=== PATIENT | male | born 1955 | race Caucasian/White ===

== ENCOUNTER 2018-07-31 07:23 | Emergency (ER) | payer MEDICARE, MEDICAID ==
--- NOTE | 2018-07-31 07:36 | EDM.PDOC ---
ED HPI GENERAL MEDICAL PROBLEM - General Chief Complaint: Upper Extremity Injury/Pain Stated Complaint: CRAMP IN NECK, ROCÍO SIDE Time Seen by Provider: 07/31/18 07:35 Source of Information: Reports: Patient, Old Records, RN, RN Notes Reviewed History Limitations: Reports: No Limitations - History of Present Illness INITIAL COMMENTS - FREE TEXT/NARRATIVE: Pt presents from home by POV with c/o gradual onset of right sided neck pain with muscle spasms and pain that radiates to the Rt shoulder and deltoid shoulder region. He denies any injury. Denies fever, chills, headache, numbness , or tingling. Onset: Gradual Onset Date: 07/30/18 Duration: Constant, Getting Worse Location: Reports: Neck, Upper Extremity, Right Quality: Reports: Ache (muscle spasm) Severity: Severe Improves with: Reports: None Worsens with: Reports: Movement Associated Symptoms: Reports: No Other Symptoms Treatments ESTIMATOR AND DRAFTER: Reports: Aspirin, Home Treatments (Icy-Hot topical) Right Neck Pain Score (Numeric/FACES): 10 - Related Data Allergies Allergy/AdvReac Type Severity Reaction Status Date / Time No Known Allergies Allergy Verified 07/31/18 07:34 Home Meds: Home Meds Aspirin [[place] Aspirin] 81 mg PO DAILY 07/31/18 [History] Lisinopril/Hydrochlorothiazide [Lisinopril-Hctz 20-12.5 mg Tab] 1 tab PO DAILY 07/31/18 [History] Metoprolol Succinate 50 mg PO DAILY 07/31/18 [History] Omeprazole 20 mg PO DAILY 07/31/18 [History] atorvaSTATin Calcium [Atorvastatin Calcium] 40 mg PO DAILY 07/31/18 [History] Past Medical History Cardiovascular History: Reports: High Cholesterol, Hypertension Gastrointestinal History: Reports: GERD Genitourinary History: Reports: Chronic Renal Insuffiency (CKD Stage 3) Neurological History: Reports: Brain Injury - Past Surgical History Head Surgeries/Procedures: Reports: Craniotomy Musculoskeletal Surgical History: Reports: ORIF (finger) Social & Family History - Family History Family Medical History: Noncontributory - Tobacco Use Smoking Status *Q: Never Smoker - Living Situation & Occupation Occupation: Retired Review of Systems - Review of Systems Review Of Systems: ROS reveals no pertinent complaints other than HPI. ED EXAM, GENERAL - Physical Exam Exam: See Below Exam Limited By: No Limitations General Appearance: Alert, WD/WN, No Apparent Distress Eye Exam: Bilateral Eye: EOMI, Normal Inspection, PERRL Ears: Normal External Exam, Hearing Grossly Normal Nose: Normal Inspection, Normal Mucosa, No Blood Throat/Mouth: Normal Inspection, Normal Lips, Normal Voice, No Airway Compromise Head: Atraumatic, Normocephalic Neck: Supple, Limited Range of Motion (limited B/L rotation due to muscle spasm and pain. No nuchal rigidity.), Tender Lateral (Rt > Left). No: Carotid Bruit, Lymphadenopathy (L), Lymphadenopathy (R), Tender Midline Respiratory/Chest: No Respiratory Distress, Lungs Clear, Normal Breath Sounds, No Accessory Muscle Use, Chest Non-Tender Cardiovascular: Regular Rate, Rhythm Peripheral Pulses: 3+: Radial (L), Radial (R) Back Exam: Full Range of Motion, Muscle Spasm (Rt paraspinal neck and upper thoracic, and at Rt trapezius region), Paraspinal Tenderness. No: CVA Tenderness (L), CVA Tenderness (R), Vertebral Tenderness Extremities: Normal Inspection, Normal Range of Motion, Non-Tender, Normal Capillary Refill, No Pedal Edema Neurological: Alert, Oriented, CN II-XII Intact, Normal Cognition, Normal Gait, No Motor/Sensory Deficits Psychiatric: Normal Mood Skin Exam: Warm, Dry, Intact, Normal Color, No Rash Course - Vital Signs Last Recorded V/S: Last Vital Signs Temp 36.4 C 07/31/18 07:25 Pulse 63 07/31/18 07:25 Resp 18 07/31/18 07:25 BP 127/75 07/31/18 07:25 Pulse Ox 98 07/31/18 07:25 - Orders/Labs/Meds Orders: Active Orders 24 hr Category Date Time Status Cervical Spine 2V or 3V [CR] Urgent Exams 07/31/18 07:42 Ordered - Radiology Interpretation Free Text/Narrative:: XR C-spine: severe DDD and chronic appearing degenerative or post-traumatic changes, no acute fractures; see Rad. report. Departure - Departure Time of Disposition: 08:02 Disposition: Home, Self-Care 01 Condition: Good Clinical Impression: Cervical radiculopathy due to degenerative joint disease of spine, Trapezius muscle spasm Cervical spine degeneration Qualifiers: Spinal osteoarthritis complication: with radiculopathy Qualified Code(s): M47.22 - Other spondylosis with radiculopathy, cervical region - Discharge Information *PRESCRIPTION DRUG MONITORING PROGRAM REVIEWED*: No *COPY OF PRESCRIPTION DRUG MONITORING REPORT IN PATIENT YISSEL: No Instructions: Cervical Radiculopathy, [id number], Degenerative Disk Disease, Acute Torticollis, Adult Forms: ED Department Discharge Additional Instructions: Rx: Dexamethasone 4mg Rx: Cyclobenzaprine 10mg *Do not drive while under the influence of this medication. Follow up in clinic in 3 to 4 days for recheck. - My Orders Last 24 Hours: My Active Orders 07/31/18 07:42 Cervical Spine 2V or 3V [CR] Urgent - Assessment/Plan Last 24 Hours: My Active Orders 07/31/18 07:42 Cervical Spine 2V or 3V [CR] Urgent
--- NOTE | 2018-07-31 08:37 | CR ---
Clinical history: 63-year-old male complaining of neck pain that "radiates to right shoulder". No kno wn injury. Interpretation: Abnormal. Evidence of old trauma and chronic reactive arthritic changes. Dense reactive arthritic changes involving the atlantoaxial joint and several facet joints mid cervic al spine, particularly on the right. 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 *Chronic reactive arthritic changes including large uncinate spur formation (R>L) several levels but particularly C3-4 and C5-6 levels, on the right, probably responsible for patient's radiculopathy. No sign of pathologic skeletal lesion, prevertebral soft tissue swelling, cervical fracture or spondy lolisthesis. No cervical rib anomalies. Lung apices clear. Note: Evidence of previous neurosurgery (bone flap) and old healed fracture left clavicle.
== END 2018-07-31 08:28 | disposition home or self-care (01) ==
LOC: DL.ED 07:23
DX: M50.10 Cervical disc disorder with radiculopathy, unspecified cervical region (principal); M47.22 Other spondylosis with radiculopathy, cervical region; M62.830 Muscle spasm of back; I12.9 Hypertensive chronic kidney disease with stage 1 through stage 4 chronic kidney disease, or unspecified chronic kidney disease; N18.3 Chronic kidney disease, stage 3 (moderate)
CPT/HCPCS: 72040; 99283

== ENCOUNTER 2018-12-05 10:51 | Observation (INO) | payer MEDICARE, MEDICAID ==
[2018-12-05] MEDS ORDERED: Ondansetron 4 MG/2 ML SDV IV ONE (11:06)
[2018-12-05] MEDS ORDERED: Sodium Chloride 0.9% 1,000 ML IV ONE (11:06)
[2018-12-05] MEDS: Sodium Chloride 0.9% 10 ML Syringe FLUSH PRN ×2 (11:22→16:08)
[2018-12-05 11:49] LABS: ANION GAP 19.8
[2018-12-05] MEDS ORDERED: Albuterol/Ipratropium 3.0-0.5 MG/3 ML Neb Soln NEB ONE (11:57)
--- NOTE | 2018-12-05 12:42 | EDM.PDOCBH ---
Scribed by Leilani Tadeo 12/05/18 1216 for Josie Sim MD ED HPI GENERAL MEDICAL PROBLEM - General Chief Complaint: Drug or Alcohol Abuse Stated Complaint: AMBULANCE Time Seen by Provider: 12/05/18 10:44 Source of Information: Reports: Patient, EMS, EMS Notes Reviewed, RN, RN Notes Reviewed History Limitations: Reports: Intoxication - History of Present Illness INITIAL COMMENTS - FREE TEXT/NARRATIVE: Patient presents to ER by [facility]. Patient was found in the elevator in his apartment. patient states that he had been out drinking and smoking and was on his way home. He thinks he was to drunk and passed out in the elevator. He was found by another apartment resident who called 911. He denies any pain or injury. Patient is intoxicated and not able to provide any further history. Severity: Moderate Left Chest Pain Score (Numeric/FACES): 0 - Related Data Allergies Allergy/AdvReac Type Severity Reaction Status Date / Time No Known Allergies Allergy Verified 12/05/18 10:53 Home Meds: Home Meds Aspirin [[place] Aspirin] 81 mg PO DAILY 07/31/18 [History] Lisinopril/Hydrochlorothiazide [Lisinopril-Hctz 20-12.5 mg Tab] 1 tab PO DAILY 07/31/18 [History] Metoprolol Succinate 50 mg PO DAILY 07/31/18 [History] Omeprazole 20 mg PO DAILY 07/31/18 [History] atorvaSTATin Calcium [Atorvastatin Calcium] 40 mg PO DAILY 07/31/18 [History] Past Medical History Cardiovascular History: Reports: High Cholesterol, Hypertension Gastrointestinal History: Reports: GERD Genitourinary History: Reports: Chronic Renal Insuffiency (CKD Stage 3) Neurological History: Reports: Brain Injury - Past Surgical History Head Surgeries/Procedures: Reports: Craniotomy Musculoskeletal Surgical History: Reports: ORIF (finger) Social & Family History - Family History Family Medical History: Noncontributory - Tobacco Use Smoking Status *Q: Current Every Day Smoker Tobacco Use Within Last Twelve Months: Cigarettes Years of Tobacco use: 48 - Alcohol Use Alcohol Use History: Yes Alcohol Use Frequency: Daily, Patient Refused to Answer - Living Situation & Occupation Living situation: Reports: Alone Occupation: Retired ED ROS GENERAL - Review of Systems Review Of Systems: ROS reveals no pertinent complaints other than HPI. ED EXAM, BEHAVIORAL HEALTH - Physical Exam Exam: See Below Exam Limited By: Intoxication General Appearance: Alert, No Apparent Distress, Obese Eye Exam: Bilateral Eye: EOMI, Normal Inspection, PERRL Ears: Normal External Exam, Hearing Grossly Normal Nose: Normal Inspection, Normal Mucosa, No Blood Throat/Mouth: Normal Lips, Normal Oropharynx, Normal Voice, No Airway Compromise , Other (very dry) Head: Atraumatic, Normocephalic, Other (dry vomit on chin.) Neck: Normal Inspection, Full Range of Motion Respiratory/Chest: No Respiratory Distress, Lungs Clear, No Accessory Muscle Use , Chest Non-Tender, Wheezing (intermittent), Other (Cough, non-productive) Cardiovascular: Regular Rate, Rhythm, No Edema GI/Abdominal: Normal Bowel Sounds, Soft, Non-Tender, No Distention (Male) Exam: Deferred Rectal (Males) Exam: Deferred Back Exam: Normal Inspection Extremities: Normal Inspection, Normal Range of Motion, Non-Tender, Normal Capillary Refill, No Pedal Edema Neurological: Alert, No Motor/Sensory Deficits, Disoriented to Time, Other ( intoxicated) Skin Exam: Warm, Dry, Intact EKG INTERPRETATION EKG Date: 12/05/18 Time: 11:31 Rhythm: Other (sinus rhythm) Rate (Beats/Min): 87 [place]: Normal P-Wave: Present QRS: Normal ST-T: Normal QT: Normal Comparison: NA - No Prior EKG COURSE, BEHAVIORAL HEALTH COMP - Course Vital Signs: Last Vital Signs Temp 36.2 C 12/05/18 10:45 Pulse 101 H 12/05/18 12:22 Resp 18 12/05/18 12:22 BP 152/70 H 12/05/18 12:22 Pulse Ox 93 L 12/05/18 12:22 Orders, Labs, Meds: Active Orders 24 hr Category Date Time Status EKG 12 Lead [EKG Documentation Completion] [RC] STAT Care 12/05/18 11:05 Active Peripheral IV Care [RC] . DIRECTED Care 12/05/18 11:07 Active RT Aerosol Therapy [RC] ASDIRECTED Care 12/05/18 11:57 Active Chest 1V Frontal [CR] Stat Exams 12/05/18 11:05 Taken Sodium Chloride 0.9% [Saline Flush] Med 12/05/18 11:06 Active 10 ml FLUSH ASDIRECTED PRN Peripheral IV Insertion Adult [OM.PC] Stat Oth 12/05/18 11:05 Ordered Medication Orders Sodium Chloride (Saline Flush) 10 ml FLUSH ASDIRECTED PRN PRN Reason: Keep Vein Open Last Admin: 12/05/18 11:22 Dose: 10 ml Laboratory Tests 12/05/18 12/05/18 12/05/18 Range/Units 11:21 11:21 11:50 WBC 14.3 H (5.0-10.0) 10^3/uL RBC 5.80 (4.6-6.2) 10^6/uL Hgb 16.1 (14.0-18.0) g/dL Hct 48.2 (40.0-54.0) % MCV 83.1 (80-100) fL MCH 27.8 (27.0-34.0) pg MCHC 33.4 (33.0-35.0) g/dL Plt Count 246 (150-450) 10^3/uL Neut % (Auto) 79.3 H (42.2-75.2) % Lymph % (Auto) 14.7 L (20.5-50.1) % [place] % (Auto) 5.9 (2-8) % Eos % (Auto) 0.0 L (1.0-3.0) % Baso % (Auto) 0.1 (0.0-1.0) % Sodium 135 (135-145) mmol/L Potassium 3.8 (3.6-5.0) mmol/L Chloride 98 L (101-111) mmol/L Carbon Dioxide 21.0 (21.0-31.0) mmol/L Anion Gap 19.8 BUN 17 (7-18) mg/dL Creatinine 1.4 H (0.6-1.3) mg/dL Est Cr Clr Drug Dosing 59.45 mL/min Estimated GFR (MDRD) 51 BUN/Creatinine Ratio 12.14 Glucose 137 H (74-105) mg/dL Calcium 8.6 (8.4-10.2) mg/dl Total Bilirubin 0.6 (0.2-1.0) mg/dL AST 38 (10-42) IU/L ALT 28 (10-60) IU/L Alkaline Phosphatase 82 (42-121) IU/L Troponin I 0.02 (0.00-0.02) ng/ml Total Protein 7.8 (6.7-8.2) g/dl Albumin 4.1 (3.2-5.5) g/dl Globulin 3.7 Albumin/Globulin Ratio 1.11 Amylase 181 H (28-100) U/L Lipase 33 (22-51) U/L Urine Color Yellow (YELLOW) Urine Appearance Clear (CLEAR) Urine pH 5.0 (5.0-9.0) Ur Specific [place] >= 1.030 (1.005-1.030) Urine Protein 100 H (NEGATIVE) Urine Glucose (UA) 100 H (NEGATIVE) Urine Ketones Negative (NEGATIVE) Urine Occult Blood Large H (NEGATIVE) Urine Nitrite Negative (NEGATIVE) Urine Bilirubin Negative (NEGATIVE) Urine Urobilinogen 0.2 (0.2-1.0) mg/dL Ur Leukocyte Esterase Negative (NEGATIVE) Urine RBC 0-5 /HPF Urine WBC 0-5 (0-5/HPF) /HPF Ur Epithelial Cells Few /HPF Urine Bacteria Few (0-FEW/HPF) /HPF Hyaline Casts Few H /LPF Fine Granular Casts Few H (0/LPF) /LPF Urine Mucus Moderate H /LPF Urine Opiates Screen (NEGATIVE) Ur Oxycodone Screen (NEGATIVE) Urine Methadone Screen (NEGATIVE) Ur Barbiturates Screen (NEGATIVE) U Tricyclic Antidepress (NEGATIVE) Ur Phencyclidine Scrn (NEGATIVE) Ur Amphetamine Screen (NEGATIVE) U Methamphetamines Scrn (NEGATIVE) Urine MDMA Screen (NEGATIVE) U Benzodiazepines Scrn (NEGATIVE) Urine Cocaine Screen (NEGATIVE) U Marijuana (THC) Screen (NEGATIVE) Ethyl Alcohol 361 mg/dL 12/05/18 Range/Units 11:50 WBC (5.0-10.0) 10^3/uL RBC (4.6-6.2) 10^6/uL Hgb (14.0-18.0) g/dL Hct (40.0-54.0) % MCV (80-100) fL MCH (27.0-34.0) pg MCHC (33.0-35.0) g/dL Plt Count (150-450) 10^3/uL Neut % (Auto) (42.2-75.2) % Lymph % (Auto) (20.5-50.1) % Gilchrist % (Auto) (2-8) % Eos % (Auto) (1.0-3.0) % Baso % (Auto) (0.0-1.0) % Sodium (135-145) mmol/L Potassium (3.6-5.0) mmol/L Chloride (101-111) mmol/L Carbon Dioxide (21.0-31.0) mmol/L Anion Gap BUN (7-18) mg/dL Creatinine (0.6-1.3) mg/dL Est Cr Clr Drug Dosing mL/min Estimated GFR (MDRD) BUN/Creatinine Ratio Glucose (74-105) mg/dL Calcium (8.4-10.2) mg/dl Total Bilirubin (0.2-1.0) mg/dL AST (10-42) IU/L ALT (10-60) IU/L Alkaline Phosphatase (42-121) IU/L Troponin I (0.00-0.02) ng/ml Total Protein (6.7-8.2) g/dl Albumin (3.2-5.5) g/dl Globulin Albumin/Globulin Ratio Amylase (28-100) U/L Lipase (22-51) U/L Urine Color (YELLOW) Urine Appearance (CLEAR) Urine pH (5.0-9.0) Ur Specific [place] (1.005-1.030) Urine Protein (NEGATIVE) Urine Glucose (UA) (NEGATIVE) Urine Ketones (NEGATIVE) Urine Occult Blood (NEGATIVE) Urine Nitrite (NEGATIVE) Urine Bilirubin (NEGATIVE) Urine Urobilinogen (0.2-1.0) mg/dL Ur Leukocyte Esterase (NEGATIVE) Urine RBC /HPF Urine WBC (0-5/HPF) /HPF Ur Epithelial Cells /HPF Urine Bacteria (0-FEW/HPF) /HPF Hyaline Casts /LPF Fine Granular Casts (0/LPF) /LPF Urine Mucus /LPF Urine Opiates Screen Negative (NEGATIVE) Ur Oxycodone Screen Negative (NEGATIVE) Urine Methadone Screen Negative (NEGATIVE) Ur Barbiturates Screen Negative (NEGATIVE) U Tricyclic Antidepress Negative (NEGATIVE) Ur Phencyclidine Scrn Negative (NEGATIVE) Ur Amphetamine Screen Negative (NEGATIVE) U Methamphetamines Scrn Negative (NEGATIVE) Urine MDMA Screen Negative (NEGATIVE) U Benzodiazepines Scrn Negative (NEGATIVE) Urine Cocaine Screen Negative (NEGATIVE) U Marijuana (THC) Screen Negative (NEGATIVE) Ethyl Alcohol mg/dL Medications Generic Name Dose Route Start Last Admin Trade Name Freq PRN Reason Stop Dose Admin Sodium Chloride 10 ml 12/05/18 11:06 12/05/18 11:22 Saline Flush FLUSH 10 ml ASDIRECTED PRN Administration Keep Vein Open Discontinued Medications Generic Name Dose Route Start Last Admin Trade Name Nachoq PRN Reason Stop Dose Admin Albuterol/Ipratropium 3 ml 12/05/18 11:57 12/05/18 12:10 Duoneb 3.0-0.5 Mg/3 Ml NEB 12/05/18 11:58 3 ml ONETIME ONE Administration Sodium Chloride 1,000 mls @ 999 mls/hr 12/05/18 11:06 12/05/18 11:22 Normal Saline IV 12/05/18 12:06 999 mls/hr .BOLUS ONE Administration Ondansetron HCl 4 mg 12/05/18 11:06 12/05/18 11:23 Zofran IV 12/05/18 11:07 4 mg ONETIME ONE Administration Re-Assessment/Re-Exam: [facility] Final Radiology Report Call: [phone] assistance Online chat: [email or web address] Name: RIKA BEYER Age: 63Years M Date: 12/05/2018 SSN: -- : 1955 Study: XR CHEST 1 VIEW Requesting Physician: JOSIE SIM Images: 1 Addl Studies: Provided Clinical History: Contrast: Contrast Medium: Contrast Amount: Contrast Method: CONFIDENTIALITY STATEMENT This report is intended only for use by the referring physician, and only in accordance with law. If you received this in error, call [phone]. Page 1 of 1 EXAM: XR Chest, 1 View EXAM DATE/TIME: 12/05/2018 11:20 AM CLINICAL HISTORY: 63 years old, male; Signs and symptoms; Cough and other: Chest pain, cough, vomiting, intoxicated TECHNIQUE: XR of the chest, 1 view. COMPARISON: CR CHEST PORTABLE 06/21/2013 12:17 PM FINDINGS/IMPRESSION: There is soft tissue overlying and obscuring the costophrenic recesses. Grossly, no discrete infiltrate or consolidation, effusion or pneumothorax is seen. Heart size is normal. Thank you for allowing us to participate in the care of your patient. Dictated and Authenticated by: Vaughn Blackmon MD 12/05/2018 11:37 AM Central Time ([place] & [place]) Medical Clearance: 12/05/18 12:39 Pt is too intoxicated to clear for detox or discharge, and has cough. Also it is unclear if the pt aspirated vomit into his lungs or not. Chest X-ray is negative, but he would benefit from observation to ensure that he doesn't develop signs of aspiration pneumonia. Departure - Departure Time of Disposition: 12:39 (admit to Dr. Austin) Disposition: Refer to Observation Condition: Fair, Undetermined Clinical Impression: Alcohol abuse, Acute exacerbation of chronic obstructive pulmonary disease ( COPD) Acute alcohol intoxication Qualifiers: Complication of substance-induced condition: with unspecified complication Qualified Code(s): F10.929 - Alcohol use, unspecified with intoxication, unspecified - Discharge Information *PRESCRIPTION DRUG MONITORING PROGRAM REVIEWED*: No *COPY OF PRESCRIPTION DRUG MONITORING REPORT IN PATIENT YISSEL: No Forms: ED Department Discharge - My Orders Last 24 Hours: My Active Orders 12/05/18 11:05 EKG 12 Lead [EKG Documentation Completion] [RC] STAT Chest 1V Frontal [CR] Stat Peripheral IV Insertion Adult [OM.PC] Stat 12/05/18 11:06 Sodium Chloride 0.9% [Saline Flush] 10 ml FLUSH ASDIRECTED PRN 12/05/18 11:07 Peripheral IV Care [RC] . DIRECTED 12/05/18 11:57 RT Aerosol Therapy [RC] ASDIRECTED - Assessment/Plan Last 24 Hours: My Active Orders 12/05/18 11:05 EKG 12 Lead [EKG Documentation Completion] [RC] STAT Chest 1V Frontal [CR] Stat Peripheral IV Insertion Adult [OM.PC] Stat 12/05/18 11:06 Sodium Chloride 0.9% [Saline Flush] 10 ml FLUSH ASDIRECTED PRN 12/05/18 11:07 Peripheral IV Care [RC] . DIRECTED 12/05/18 11:57 RT Aerosol Therapy [RC] ASDIRECTED I have read and agree with the documentation that has been completed regarding this visit. By signing this record, I attest that the documentation was completed in my physical presence and is an accurate record of the encounter.
[2018-12-05] MEDS ORDERED: Aluminum Hydroxide/Magnesium Hydroxide/Simethicone Susp 30 ML Cup PO PRN (13:46)
[2018-12-05] MEDS ORDERED: Magnesium Hydroxide 400 MG/5 ML Susp 30 ML Cup PO PRN (13:46)
[2018-12-05] MEDS ORDERED: Calcium Carbonate 500 MG Tab.Chew PO PRN (13:46)
[2018-12-05] MEDS ORDERED: MVI, Adult with Vitamin K 10 ML, Folic Acid 1 MG, Thiamine 100 MG in Lactated Ringers 1... IV ONE ×4 (13:50)
[2018-12-05] MEDS ORDERED: LORazepam 2 MG/ML Syringe IVPUSH PRN (13:52)
--- NOTE | 2018-12-05 14:08 | PCM.HP ---
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 Patient is intoxicated and could not provide adequate history. He said he was drinking and also smoking. He fell in the elevator and could not breathe. He thinks he was to drunk and passed out in the elevator. He was found by another resident who activated EMS. He denies head injury or passing out. He denies vomiting, chest pain, fever, chills, cough. Patient is a chronic alcoholic who drinks to about 3 L of Vodka every day. He also smokes marijuana every day but denies tobacco use. In the ER his alcohol level was 361. This history was negative for infiltrate. Labs; WBC 41.3, creatinine 1.4. Hospitalist service was consulted for admission for further management. Onset of Symptoms: Reports: Gradual Duration of Symptoms: Reports: Hour(s): Location: Reports: Chest Quality: Reports: Ache Improves with: Reports: None Worsens with: Reports: Breathing Associated Symptoms: Reports: Shortness of Breath Left Chest Pain Score (Numeric/FACES): 0 - Related Data Allergies/Adverse Reactions: Allergies Allergy/AdvReac Type Severity Reaction Status Date / Time ampicillin Allergy Itching Verified 12/05/18 13:12 Home Medications: Home Meds Aspirin [Spencer Aspirin] 81 mg PO DAILY 07/31/18 [History] Lisinopril/Hydrochlorothiazide [Lisinopril-Hctz 20-12.5 mg Tab] 1 tab PO DAILY 07/31/18 [History] Metoprolol Succinate 50 mg PO DAILY 07/31/18 [History] Omeprazole 20 mg PO DAILY 07/31/18 [History] atorvaSTATin Calcium [Atorvastatin Calcium] 40 mg PO DAILY 07/31/18 [History] Past Medical History HEENT History: Reports: None Cardiovascular History: Reports: High Cholesterol, Hypertension Respiratory History: Reports: None Gastrointestinal History: Reports: GERD Genitourinary History: Reports: Chronic Renal Insuffiency Musculoskeletal History: Reports: None Neurological History: Reports: Brain Injury Psychiatric History: Reports: Addiction Endocrine/Metabolic History: Reports: Obesity/BMI 30+ Hematologic History: Reports: None Immunologic History: Reports: None Oncologic (Cancer) History: Reports: None Dermatologic History: Reports: None - Infectious Disease History Infectious Disease History: Reports: None - Past Surgical History Head Surgeries/Procedures: Reports: Craniotomy HEENT Surgical History: Reports: None Cardiovascular Surgical History: Reports: None Respiratory Surgical History: Reports: None GI Surgical History: Reports: None Male Surgical History: Reports: None Neurological Surgical History: Reports: None Musculoskeletal Surgical History: Reports: ORIF Social & Family History - Family History Family Medical History: Noncontributory - Tobacco Use Smoking Status *Q: Unknown Ever Smoked Years of Tobacco use: 48 Second Hand Smoke Exposure: No - Caffeine Use Caffeine Use: Reports: Coffee, Soda, Tea - Alcohol Use Days Per Week of Alcohol Use: 7 Number of Drinks Per Day: 10 Total Drinks Per Week: 70 - Recreational Drug Use Recreational Drug Use: Yes Recreational Drug Type: Reports: Marijuana/Hashish Recreational Drug Use Frequency: Daily - Living Situation & Occupation Living situation: Reports: Alone Occupation: Retired H&P Review of Systems - Review of Systems: Review Of Systems: See Below General: Reports: No Symptoms HEENT: Reports: No Symptoms Pulmonary: Reports: No Symptoms Cardiovascular: Reports: No Symptoms Gastrointestinal: Reports: No Symptoms Genitourinary: Reports: No Symptoms Musculoskeletal: Reports: No Symptoms Skin: Reports: No Symptoms Psychiatric: Reports: No Symptoms Neurological: Reports: No Symptoms Hematologic/Lymphatic: Reports: No Symptoms Immunologic: Reports: No Symptoms Exam - Exam Exam: See Below - Vital Signs Vital Signs: Last Vital Signs Temp 98.8 F 12/05/18 13:05 Pulse 98 12/05/18 13:05 Resp 22 H 12/05/18 13:05 BP 172/92 H 12/05/18 13:05 Pulse Ox 95 12/05/18 13:05 Weight: 248 lb 12.8 oz - Exam Quality Assessment: DVT Prophylaxis General: Alert, Oriented, 4 HEENT: PERRLA, Hearing Intact, Mucosa Moist & Stanton, Nares Patent, Normal Nasal Septum, Posterior Pharynx Clear, Conjunctiva Clear, EOMI, EACs Clear, TMs Clear Neck: Supple, Trachea Midline, 2 Lungs: Clear to Auscultation, Normal Respiratory Effort Cardiovascular: Regular Rate, Regular Rhythm GI/Abdominal Exam: Normal Bowel Sounds, Soft, Non-Tender, No Organomegaly, No Distention, No Abnormal Bruit, No Mass, Pelvis Stable (Male) Exam: No Hernia, Normal Inspection, Normal Prostate, Circumcised Rectal (Males) Exam: Normal Exam, Normal Rectal Tone, Prostate Normal Back Exam: Normal Inspection, Full Range of Motion, NT Extremities: Normal Inspection, Normal Range of Motion, Non-Tender, No Pedal Edema, Normal Capillary Refill Skin: Warm, Dry, Intact Neurological: Cranial Nerves Intact, Reflexes Equal Bilateral Neuro Extensive - Mental Status: Alert, Oriented x3, Normal Mood/Affect, Normal Cognition Neuro Extensive - Motor, Sensory, Reflexes: CN II-XII Intact, Normal Gait, Normal Reflexes Psychiatric: Alert, Normal Affect, Normal Mood - Patient Data Lab Results Last 24 hrs: Laboratory Results - last 24 hr 12/05/18 12/05/18 12/05/18 Range/Units 11:21 11:21 11:50 WBC 14.3 H (5.0-10.0) 10^3/uL RBC 5.80 (4.6-6.2) 10^6/uL Hgb 16.1 (14.0-18.0) g/dL Hct 48.2 (40.0-54.0) % MCV 83.1 (80-100) fL MCH 27.8 (27.0-34.0) pg MCHC 33.4 (33.0-35.0) g/dL Plt Count 246 (150-450) 10^3/uL Neut % (Auto) 79.3 H (42.2-75.2) % Lymph % (Auto) 14.7 L (20.5-50.1) % Clare % (Auto) 5.9 (2-8) % Eos % (Auto) 0.0 L (1.0-3.0) % Baso % (Auto) 0.1 (0.0-1.0) % Sodium 135 (135-145) mmol/L Potassium 3.8 (3.6-5.0) mmol/L Chloride 98 L (101-111) mmol/L Carbon Dioxide 21.0 (21.0-31.0) mmol/L Anion Gap 19.8 BUN 17 (7-18) mg/dL Creatinine 1.4 H (0.6-1.3) mg/dL Est Cr Clr Drug Dosing 59.45 mL/min Estimated GFR (MDRD) 51 BUN/Creatinine Ratio 12.14 Glucose 137 H (74-105) mg/dL Calcium 8.6 (8.4-10.2) mg/dl Total Bilirubin 0.6 (0.2-1.0) mg/dL AST 38 (10-42) IU/L ALT 28 (10-60) IU/L Alkaline Phosphatase 82 (42-121) IU/L Troponin I 0.02 (0.00-0.02) ng/ml Total Protein 7.8 (6.7-8.2) g/dl Albumin 4.1 (3.2-5.5) g/dl Globulin 3.7 Albumin/Globulin Ratio 1.11 Amylase 181 H (28-100) U/L Lipase 33 (22-51) U/L Urine Color Yellow (YELLOW) Urine Appearance Clear (CLEAR) Urine pH 5.0 (5.0-9.0) Ur Specific [place] >= 1.030 (1.005-1.030) Urine Protein 100 H (NEGATIVE) Urine Glucose (UA) 100 H (NEGATIVE) Urine Ketones Negative (NEGATIVE) Urine Occult Blood Large H (NEGATIVE) Urine Nitrite Negative (NEGATIVE) Urine Bilirubin Negative (NEGATIVE) Urine Urobilinogen 0.2 (0.2-1.0) mg/dL Ur Leukocyte Esterase Negative (NEGATIVE) Urine RBC 0-5 /HPF Urine WBC 0-5 (0-5/HPF) /HPF Ur Epithelial Cells Few /HPF Urine Bacteria Few (0-FEW/HPF) /HPF Hyaline Casts Few H /LPF Fine Granular Casts Few H (0/LPF) /LPF Urine Mucus Moderate H /LPF Urine Opiates Screen (NEGATIVE) Ur Oxycodone Screen (NEGATIVE) Urine Methadone Screen (NEGATIVE) Ur Barbiturates Screen (NEGATIVE) U Tricyclic Antidepress (NEGATIVE) Ur Phencyclidine Scrn (NEGATIVE) Ur Amphetamine Screen (NEGATIVE) U Methamphetamines Scrn (NEGATIVE) Urine MDMA Screen (NEGATIVE) U Benzodiazepines Scrn (NEGATIVE) Urine Cocaine Screen (NEGATIVE) U Marijuana (THC) Screen (NEGATIVE) Ethyl Alcohol 361 mg/dL 12/05/18 Range/Units 11:50 WBC (5.0-10.0) 10^3/uL RBC (4.6-6.2) 10^6/uL Hgb (14.0-18.0) g/dL Hct (40.0-54.0) % MCV (80-100) fL MCH (27.0-34.0) pg MCHC (33.0-35.0) g/dL Plt Count (150-450) 10^3/uL Neut % (Auto) (42.2-75.2) % Lymph % (Auto) (20.5-50.1) % Clare % (Auto) (2-8) % Eos % (Auto) (1.0-3.0) % Baso % (Auto) (0.0-1.0) % Sodium (135-145) mmol/L Potassium (3.6-5.0) mmol/L Chloride (101-111) mmol/L Carbon Dioxide (21.0-31.0) mmol/L Anion Gap BUN (7-18) mg/dL Creatinine (0.6-1.3) mg/dL Est Cr Clr Drug Dosing mL/min Estimated GFR (MDRD) BUN/Creatinine Ratio Glucose (74-105) mg/dL Calcium (8.4-10.2) mg/dl Total Bilirubin (0.2-1.0) mg/dL AST (10-42) IU/L ALT (10-60) IU/L Alkaline Phosphatase (42-121) IU/L Troponin I (0.00-0.02) ng/ml Total Protein (6.7-8.2) g/dl Albumin (3.2-5.5) g/dl Globulin Albumin/Globulin Ratio Amylase (28-100) U/L Lipase (22-51) U/L Urine Color (YELLOW) Urine Appearance (CLEAR) Urine pH (5.0-9.0) Ur Specific [place] (1.005-1.030) Urine Protein (NEGATIVE) Urine Glucose (UA) (NEGATIVE) Urine Ketones (NEGATIVE) Urine Occult Blood (NEGATIVE) Urine Nitrite (NEGATIVE) Urine Bilirubin (NEGATIVE) Urine Urobilinogen (0.2-1.0) mg/dL Ur Leukocyte Esterase (NEGATIVE) Urine RBC /HPF Urine WBC (0-5/HPF) /HPF Ur Epithelial Cells /HPF Urine Bacteria (0-FEW/HPF) /HPF Hyaline Casts /LPF Fine Granular Casts (0/LPF) /LPF Urine Mucus /LPF Urine Opiates Screen Negative (NEGATIVE) Ur Oxycodone Screen Negative (NEGATIVE) Urine Methadone Screen Negative (NEGATIVE) Ur Barbiturates Screen Negative (NEGATIVE) U Tricyclic Antidepress Negative (NEGATIVE) Ur Phencyclidine Scrn Negative (NEGATIVE) Ur Amphetamine Screen Negative (NEGATIVE) U Methamphetamines Scrn Negative (NEGATIVE) Urine MDMA Screen Negative (NEGATIVE) U Benzodiazepines Scrn Negative (NEGATIVE) Urine Cocaine Screen Negative (NEGATIVE) U Marijuana (THC) Screen Negative (NEGATIVE) Ethyl Alcohol mg/dL Result Diagrams: 12/05/18 11:21 12/05/18 11:21 - Problem List (1) Marijuana abuse SNOMED Code(s): 71320289 ICD Code: F12.10 - CANNABIS ABUSE, UNCOMPLICATED Status: Acute Current Visit: Yes (2) Acute alcohol intoxication SNOMED Code(s): 67733077 ICD Code: F10.929 - ALCOHOL USE, UNSPECIFIED WITH INTOXICATION, UNSPECIFIED Status: Acute Current Visit: No Qualifiers: Complication of substance-induced condition: with unspecified complication Qualified Code(s): F10.929 - Alcohol use, unspecified with intoxication, unspecified (3) Acute exacerbation of chronic obstructive pulmonary disease (COPD) SNOMED Code(s): 238316352 ICD Code: J44.1 - CHRONIC OBSTRUCTIVE PULMONARY DISEASE W (ACUTE) EXACERBATION Status: Acute Current Visit: No (4) Alcohol abuse SNOMED Code(s): 84215413 ICD Code: F10.10 - ALCOHOL ABUSE, UNCOMPLICATED Status: Acute Current Visit: No Problem List Initiated/Reviewed/Updated: Yes Orders Last 24hrs: Active Orders 24 hr Category Date Time Status Patient Status [ADT] Routine ADT 12/05/18 13:46 Ordered Antiembolic Devices [RC] .Routine Care 12/05/18 13:49 Ordered EKG 12 Lead [EKG Documentation Completion] [RC] STAT Care 12/05/18 11:05 Active Intake and Output [RC] QSHIFT Care 12/05/18 13:48 Ordered Notify Provider Vital Signs [RC] ASDIRECTED Care 12/05/18 13:49 Ordered Oxygen Therapy [RC] PRN Care 12/05/18 13:49 Ordered Peripheral IV Care [RC] . DIRECTED Care 12/05/18 11:07 Active Pulse Oximetry [RC] PRN Care 12/05/18 13:48 Ordered RT Aerosol Therapy [RC] ASDIRECTED Care 12/05/18 11:57 Active Up With Assistance [RC] ASDIRECTED Care 12/05/18 13:46 Ordered VTE/DVT Education [RC] PER UNIT ROUTINE Care 12/05/18 13:49 Ordered Vital Signs [RC] Q4H Care 12/05/18 13:46 Ordered Regular Diet [DIET] Diet 12/05/18 Dinner Ordered MAGNESIUM [CHEM] Routine Lab 12/05/18 13:56 Ordered PHOSPHORUS [CHEM] Routine Lab 12/05/18 13:56 Ordered Acetaminophen [Tylenol] Med 12/05/18 13:46 Ordered 650 mg PO Q4H PRN Alum Hydrox/Mag Hydrox/Simeth [Mag-Al Plus] Med 12/05/18 13:46 Ordered 30 ml PO Q4H PRN Calcium Carbonate [Tums] Med 12/05/18 13:46 Ordered 500 mg PO Q4H PRN Folic Acid Med 12/06/18 09:00 Ordered 1 mg PO DAILY Heparin Sodium Med 12/05/18 14:00 Ordered 5,000 units SUBCUT Q12H LORazepam [Ativan] Med 12/05/18 13:52 Ordered See Protocol IVPUSH ASDIRECTED PRN MVI w/Vit K 10 ML,Folic Acid 1 MG,Thiamine 100 MG in LR Med 12/05/18 13:50 Ordered @ 999 MLS/HR MVI, Adult with Vitamin K [Infuvite Adult] 10 ml Folic Acid 1 mg Thiamine [Vitamin B-1] 100 mg Lactated Ringers [Ringers, Lactated] 1,000 ml IV ONETIME Magnesium Hydroxide [Milk of Magnesia] Med 12/05/18 13:46 Ordered 30 ml PO BID PRN Multivitamins/Minerals [Vitamins and Minerals] Med 12/06/18 08:00 Ordered 1 tab PO WITHBREAKFAST Sodium Chloride 0.9% [Saline Flush] Med 12/05/18 11:06 Active 10 ml FLUSH ASDIRECTED PRN Thiamine [Vitamin B-1] Med 12/05/18 21:00 Ordered 100 mg PO BEDTIME DVT/VTE Prophylaxis Reflex [OM.PC] Routine Oth 12/05/18 13:46 Ordered Peripheral IV Insertion Adult [OM.PC] Stat Oth 12/05/18 11:05 Ordered Medication Orders Acetaminophen (Tylenol) 650 mg PO Q4H PRN PRN Reason: Pain (mild 1-3 )/fever Al Hydroxide/Mg Hydroxide (Mag-Al Plus) 30 ml PO Q4H PRN PRN Reason: Dyspepsia Calcium Carbonate/Glycine (Tums) 500 mg PO Q4H PRN PRN Reason: Dyspepsia Folic Acid (Folic Acid) 1 mg PO DAILY NING Heparin Sodium (Porcine) (Heparin Sodium) 5,000 units SUBCUT Q12H NING Multivitamins/Minerals 10 ml/Folic Acid 1 mg/ Thiamine HCl 100 mg/ Lactated Ringer's 1,011.2 mls @ 999 mls/hr IV ONETIME ONE Stop: 12/05/18 14:50 Lorazepam (Ativan) 0 mg IVPUSH ASDIRECTED PRN; Protocol PRN Reason: Agitation Magnesium Hydroxide (Milk Of Magnesia) 30 ml PO BID PRN PRN Reason: Constipation Multivitamins/Minerals (Vitamins And Minerals) 1 tab PO WITHBREAKFAST [facility] Sodium Chloride (Saline Flush) 10 ml FLUSH ASDIRECTED PRN PRN Reason: Keep Vein Open Last Admin: 12/05/18 11:22 Dose: 10 ml Thiamine HCl (Vitamin B-1) 100 mg PO BEDTIME [facility] Assessment/Plan Comment:: Alcohol intoxication Patient presented to the ER following a binge of drinking. He fell and could not help himself up Alcohol level in the ER 361 Admitted to the medical floor Monitor on soaker helper vitals closely Banana bag x 1 Thiamine/folic acid/multivitamin supplement Aspiration/seizure/fall precautions Monitor for alcohol withdrawal syndrome [place] protocol as needed Check electrolytes and correct as necessary Patient counseled on the need to quit using alcohol Social work to provide support Acute hypoxic respiratory failure Patient requires supplemental oxygen in the ER Not improved Chest history negative for infiltrates It is not clear whether patient aspirated as he denied vomiting Supplemental oxygen when necessary Duo-nebs when necessary Leukocytosis Likely reactive Repeat CBC in AM Elevated creatinine of 1.4 Normal BUN/creatinine ratio Aggressive IV hydration BMP in the a.m. Polysubstance abuse (alcohol and marijuana) Patient counseled on quitting TBI Stable Regular diet Full code
[2018-12-05] MEDS ORDERED: Albuterol/Ipratropium 3.0-0.5 MG/3 ML Neb Soln NEB PRN (14:21)
[2018-12-05] MEDS: Heparin Sodium 5,000 Units/ML Vial SUBCUT SCH ×2 (16:03→21:51)
[2018-12-05] MEDS: Acetaminophen 325 MG Tab PO PRN (16:48)
[2018-12-05] MEDS: Sodium Chloride 0.9% 1,000 ML IV SCH (17:16)
[2018-12-05] MEDS ORDERED: Thiamine 100 MG Tab PO SCH (21:00)
[2018-12-06] MEDS: Sodium Chloride 0.9% 1,000 ML IV SCH (01:20)
[2018-12-06 06:22] LABS: ANION GAP 13.8; CHLORIDE,CL 103 mmol/L (101-111); SODIUM,NA 137 mmol/L (135-145)
[2018-12-06] MEDS ORDERED: Multivitamins, Therapeutic with Minerals Tab PO SCH (08:00)
[2018-12-06] MEDS: Heparin Sodium 5,000 Units/ML Vial SUBCUT SCH (08:34)
[2018-12-06] MEDS: Acetaminophen 325 MG Tab PO PRN (08:36)
[2018-12-06] MEDS ORDERED: Folic Acid 1 MG Tab PO SCH (09:00)
--- NOTE | 2018-12-06 11:35 | PCM.DCSUM1 ---
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 Patient was intoxicated. He fell in the elevator and could not breathe. In the ER his alcohol level was 361. CXR was negative for infiltrate. he was admitted for alcohol intoxication. e received IVF, electrolytes replacements, supplements. His overall condition has improved and he is being discharged in stable condition. He will follow up with PCP. SW was consulted to provide help with outpatient chemical detox programs. Patient was counseled on the need to quit using alcohol and he verbalized understaging. Diagnosis: Stroke: No - Discharge Data Discharge Date: 12/06/18 Discharge Disposition: Home, Self-Care 01 Condition: Good - Discharge Diagnosis/Problem(s) (1) Marijuana abuse SNOMED Code(s): 99325560 ICD Code: F12.10 - CANNABIS ABUSE, UNCOMPLICATED Status: Acute Current Visit: Yes (2) Acute alcohol intoxication SNOMED Code(s): 64396774 ICD Code: F10.929 - ALCOHOL USE, UNSPECIFIED WITH INTOXICATION, UNSPECIFIED Status: Acute Current Visit: No Qualifiers: Complication of substance-induced condition: with unspecified complication Qualified Code(s): F10.929 - Alcohol use, unspecified with intoxication, unspecified (3) Acute exacerbation of chronic obstructive pulmonary disease (COPD) SNOMED Code(s): 820366082 ICD Code: J44.1 - CHRONIC OBSTRUCTIVE PULMONARY DISEASE W (ACUTE) EXACERBATION Status: Acute Current Visit: No (4) Alcohol abuse SNOMED Code(s): 75749692 ICD Code: F10.10 - ALCOHOL ABUSE, UNCOMPLICATED Status: Acute Current Visit: No - Patient Instructions Diet: Heart Healthy Diet Activity: As Tolerated Driving: May Drive Today Showering/Bathing: May Shower Notify Provider of: Fever, Increased Pain, Swelling and Redness, Nausea and/or Vomiting - Discharge Plan *PRESCRIPTION DRUG MONITORING PROGRAM REVIEWED*: No *COPY OF PRESCRIPTION DRUG MONITORING REPORT IN PATIENT YISSEL: No Prescriptions/Med Rec: Benzonatate [Tessalon Perle] 100 mg PO QID #20 capsule Folic Acid 1 mg PO DAILY #30 tablet guaiFENesin [Robitussin] 100 mg PO Q6H 5 Days #1 cup Multivitamins/Minerals [Vitamins and Minerals] 1 tab PO WITHBREAKFAST #30 tablet Thiamine [Vitamin B-1] 100 mg PO BEDTIME #30 tablet Home Medications: Home Meds Aspirin [Coke Aspirin] 81 mg PO DAILY 07/31/18 [History] Lisinopril/Hydrochlorothiazide [Lisinopril-Hctz 20-12.5 mg Tab] 1 tab PO DAILY 07/31/18 [History] Metoprolol Succinate 50 mg PO DAILY 07/31/18 [History] Omeprazole 20 mg PO DAILY 07/31/18 [History] atorvaSTATin Calcium [Atorvastatin Calcium] 40 mg PO DAILY 07/31/18 [History] Benzonatate [Tessalon Perle] 100 mg PO QID #20 capsule 12/06/18 [Rx] Folic Acid 1 mg PO DAILY #30 tablet 12/06/18 [Rx] Multivitamins/Minerals [Vitamins and Minerals] 1 tab PO WITHBREAKFAST #30 tablet 12/06/18 [Rx] Thiamine [Vitamin B-1] 100 mg PO BEDTIME #30 tablet 12/06/18 [Rx] guaiFENesin [Robitussin] 100 mg PO Q6H 5 Days #1 cup 12/06/18 [Rx] Patient Handouts: Alcohol Use Disorder, Alcohol Intoxication, [id number] Referrals: PCP,None [Primary Care Provider] - - Discharge Summary/Plan Comment DC Time >30 min.: Yes - General Info Admission Dx/Problem (Free Text: Admission Diagnosis/Problem Admission Diagnosis/Problem Alcohol intoxication Functional Status: Reports: Pain Controlled - Review of Systems General: Reports: No Symptoms HEENT: Reports: No Symptoms Pulmonary: Reports: No Symptoms Cardiovascular: Reports: No Symptoms Gastrointestinal: Reports: No Symptoms Genitourinary: Reports: No Symptoms Musculoskeletal: Reports: No Symptoms Skin: Reports: No Symptoms Neurological: Reports: No Symptoms Psychiatric: Reports: No Symptoms - Patient Data Vitals - Most Recent: Last Vital Signs Temp 98.8 F 12/06/18 08:00 Pulse 91 12/06/18 08:00 Resp 20 12/06/18 08:00 BP 163/81 H 12/06/18 08:00 Pulse Ox 95 12/06/18 08:00 Weight - Most Recent: 248 lb 12.8 oz I&O - Last 24 hours: Intake & Output 12/05/18 12/06/18 12/06/18 22:59 06:59 14:59 Intake Total 1296 1235 1011 Output Total 400 Balance 4606 957 1120 Lab Results - Last 24 hrs: Laboratory Results - last 24 hr 12/05/18 12/05/18 12/05/18 Range/Units 11:21 11:21 11:50 WBC (5.0-10.0) 10^3/uL RBC (4.6-6.2) 10^6/uL Hgb (14.0-18.0) g/dL Hct (40.0-54.0) % MCV (80-100) fL MCH (27.0-34.0) pg MCHC (33.0-35.0) g/dL Plt Count (150-450) 10^3/uL Neut % (Auto) (42.2-75.2) % Lymph % (Auto) (20.5-50.1) % King % (Auto) (2-8) % Eos % (Auto) (1.0-3.0) % Baso % (Auto) (0.0-1.0) % Sodium 135 (135-145) mmol/L Potassium 3.8 (3.6-5.0) mmol/L Chloride 98 L (101-111) mmol/L Carbon Dioxide 21.0 (21.0-31.0) mmol/L Anion Gap 19.8 BUN 17 (7-18) mg/dL Creatinine 1.4 H (0.6-1.3) mg/dL Est Cr Clr Drug Dosing 59.45 mL/min Estimated GFR (MDRD) 51 BUN/Creatinine Ratio 12.14 Glucose 137 H (74-105) mg/dL Calcium 8.6 (8.4-10.2) mg/dl Phosphorus 4.3 (2.5-4.6) mg/dL Magnesium 2.1 (1.8-2.5) mg/dL Total Bilirubin 0.6 (0.2-1.0) mg/dL AST 38 (10-42) IU/L ALT 28 (10-60) IU/L Alkaline Phosphatase 82 (42-121) IU/L Troponin I 0.02 (0.00-0.02) ng/ml Total Protein 7.8 (6.7-8.2) g/dl Albumin 4.1 (3.2-5.5) g/dl Globulin 3.7 Albumin/Globulin Ratio 1.11 Amylase 181 H (28-100) U/L Lipase 33 (22-51) U/L Urine Color Yellow (YELLOW) Urine Appearance Clear (CLEAR) Urine pH 5.0 (5.0-9.0) Ur Specific [place] >= 1.030 (1.005-1.030) Urine Protein 100 H (NEGATIVE) Urine Glucose (UA) 100 H (NEGATIVE) Urine Ketones Negative (NEGATIVE) Urine Occult Blood Large H (NEGATIVE) Urine Nitrite Negative (NEGATIVE) Urine Bilirubin Negative (NEGATIVE) Urine Urobilinogen 0.2 (0.2-1.0) mg/dL Ur Leukocyte Esterase Negative (NEGATIVE) Urine RBC 0-5 /HPF Urine WBC 0-5 (0-5/HPF) /HPF Ur Epithelial Cells Few /HPF Urine Bacteria Few (0-FEW/HPF) /HPF Hyaline Casts Few H /LPF Fine Granular Casts Few H (0/LPF) /LPF Urine Mucus Moderate H /LPF Urine Opiates Screen (NEGATIVE) Ur Oxycodone Screen (NEGATIVE) Urine Methadone Screen (NEGATIVE) Ur Barbiturates Screen (NEGATIVE) U Tricyclic Antidepress (NEGATIVE) Ur Phencyclidine Scrn (NEGATIVE) Ur Amphetamine Screen (NEGATIVE) U Methamphetamines Scrn (NEGATIVE) Urine MDMA Screen (NEGATIVE) U Benzodiazepines Scrn (NEGATIVE) Urine Cocaine Screen (NEGATIVE) U Marijuana (THC) Screen (NEGATIVE) Ethyl Alcohol 361 mg/dL 12/05/18 12/06/18 12/06/18 Range/Units 11:50 05:45 05:45 WBC 8.4 (5.0-10.0) 10^3/uL RBC 4.65 (4.6-6.2) 10^6/uL Hgb 12.9 L D (14.0-18.0) g/dL Hct 39.6 L (40.0-54.0) % MCV 85.2 (80-100) fL MCH 27.7 (27.0-34.0) pg MCHC 32.6 L (33.0-35.0) g/dL Plt Count 188 (150-450) 10^3/uL Neut % (Auto) 66.1 (42.2-75.2) % Lymph % (Auto) 22.0 (20.5-50.1) % King % (Auto) 11.2 H (2-8) % Eos % (Auto) 0.5 L (1.0-3.0) % Baso % (Auto) 0.2 (0.0-1.0) % Sodium 137 (135-145) mmol/L Potassium 3.8 (3.6-5.0) mmol/L Chloride 103 (101-111) mmol/L Carbon Dioxide 24.0 (21.0-31.0) mmol/L Anion Gap 13.8 BUN 11 (7-18) mg/dL Creatinine 1.1 (0.6-1.3) mg/dL Est Cr Clr Drug Dosing 75.66 mL/min Estimated GFR (MDRD) > 60 BUN/Creatinine Ratio Glucose 108 H (74-105) mg/dL Calcium 7.8 L (8.4-10.2) mg/dl Phosphorus (2.5-4.6) mg/dL Magnesium (1.8-2.5) mg/dL Total Bilirubin (0.2-1.0) mg/dL AST (10-42) IU/L ALT (10-60) IU/L Alkaline Phosphatase (42-121) IU/L Troponin I (0.00-0.02) ng/ml Total Protein (6.7-8.2) g/dl Albumin (3.2-5.5) g/dl Globulin Albumin/Globulin Ratio Amylase (28-100) U/L Lipase (22-51) U/L Urine Color (YELLOW) Urine Appearance (CLEAR) Urine pH (5.0-9.0) Ur Specific [place] (1.005-1.030) Urine Protein (NEGATIVE) Urine Glucose (UA) (NEGATIVE) Urine Ketones (NEGATIVE) Urine Occult Blood (NEGATIVE) Urine Nitrite (NEGATIVE) Urine Bilirubin (NEGATIVE) Urine Urobilinogen (0.2-1.0) mg/dL Ur Leukocyte Esterase (NEGATIVE) Urine RBC /HPF Urine WBC (0-5/HPF) /HPF Ur Epithelial Cells /HPF Urine Bacteria (0-FEW/HPF) /HPF Hyaline Casts /LPF Fine Granular Casts (0/LPF) /LPF Urine Mucus /LPF Urine Opiates Screen Negative (NEGATIVE) Ur Oxycodone Screen Negative (NEGATIVE) Urine Methadone Screen Negative (NEGATIVE) Ur Barbiturates Screen Negative (NEGATIVE) U Tricyclic Antidepress Negative (NEGATIVE) Ur Phencyclidine Scrn Negative (NEGATIVE) Ur Amphetamine Screen Negative (NEGATIVE) U Methamphetamines Scrn Negative (NEGATIVE) Urine MDMA Screen Negative (NEGATIVE) U Benzodiazepines Scrn Negative (NEGATIVE) Urine Cocaine Screen Negative (NEGATIVE) U Marijuana (THC) Screen Negative (NEGATIVE) Ethyl Alcohol mg/dL Med Orders - Current: Current Medications Acetaminophen (Tylenol) 650 mg PO Q4H PRN PRN Reason: Pain (mild 1-3 )/fever Last Admin: 12/06/18 08:36 Dose: 650 mg Al Hydroxide/Mg Hydroxide (Mag-Al Plus) 30 ml PO Q4H PRN PRN Reason: Dyspepsia Albuterol/Ipratropium (Duoneb 3.0-0.5 Mg/3 Ml) 3 ml NEB Q4HRRT PRN PRN Reason: sob, wheezing Calcium Carbonate/Glycine (Tums) 500 mg PO Q4H PRN PRN Reason: Dyspepsia Folic Acid (Folic Acid) 1 mg PO DAILY [facility] Last Admin: 12/06/18 08:34 Dose: 1 mg Heparin Sodium (Porcine) (Heparin Sodium) 5,000 units SUBCUT Q12HR [facility] [place] Last Admin: 12/06/18 08:34 Dose: 5,000 units Sodium Chloride (Normal Saline) 1,000 mls @ 125 mls/hr IV ASDIRECTED [facility] [place] Last Admin: 12/06/18 01:20 Dose: 125 mls/hr Lorazepam (Ativan) 0 mg IVPUSH ASDIRECTED PRN; Protocol PRN Reason: Agitation Magnesium Hydroxide (Milk Of Magnesia) 30 ml PO BID PRN PRN Reason: Constipation Multivitamins/Minerals (Vitamins And Minerals) 1 tab PO WITHBREAKFAST [facility] [place] Last Admin: 12/06/18 08:34 Dose: 1 tab Sodium Chloride (Saline Flush) 10 ml FLUSH ASDIRECTED PRN PRN Reason: Keep Vein Open Last Admin: 12/05/18 16:08 Dose: 10 ml Thiamine HCl (Vitamin B-1) 100 mg PO BEDTIME [facility] [place] Last Admin: 12/05/18 21:51 Dose: 100 mg Discontinued Medications Albuterol/Ipratropium (Duoneb 3.0-0.5 Mg/3 Ml) 3 ml NEB ONETIME ONE Stop: 12/05/18 11:58 Last Admin: 12/05/18 12:10 Dose: 3 ml Sodium Chloride (Normal Saline) 1,000 mls @ 999 mls/hr IV .BOLUS ONE Stop: 12/05/18 12:06 Last Admin: 12/05/18 11:22 Dose: 999 mls/hr Multivitamins/Minerals 10 ml/Folic Acid 1 mg/ Thiamine HCl 100 mg/ Lactated Ringer's 1,011.2 mls @ 999 mls/hr IV ONETIME ONE Stop: 12/05/18 14:50 Last Infusion: 12/05/18 17:15 Dose: Infused Ondansetron HCl (Zofran) 4 mg IV ONETIME ONE Stop: 12/05/18 11:07 Last Admin: 12/05/18 11:23 Dose: 4 mg - Exam General: Reports: Alert, Oriented HEENT: Reports: Pupils Equal, Pupils Reactive, EOMI, Mucous Membr. Moist/[place] Neck: Reports: Supple Lungs: Reports: Clear to Auscultation, Normal Respiratory Effort Cardiovascular: Reports: Regular Rate, Regular Rhythm GI/Abdominal Exam: Normal Bowel Sounds, Soft, Non-Tender, No Organomegaly, No Distention, No Abnormal Bruit, No Mass, Pelvis Stable (Male) Exam: No Hernia, Normal Inspection, Normal Prostate, Circumcised Rectal (Males) Exam: Normal Exam, Normal Rectal Tone, Prostate Normal Back Exam: Reports: Normal Inspection, Full Range of Motion Extremities: Normal Inspection, Normal Range of Motion, Non-Tender, No Pedal Edema, Normal Capillary Refill Skin: Reports: Warm, Dry, Intact Wound/Incisions: Reports: Healing Well Neurological: Reports: No New Focal Deficit Psy/Mental Status: Reports: Alert, Normal Affect, Normal Mood
== END 2018-12-06 14:50 | disposition home or self-care (01) ==
LOC: DL.ED 10:51 → DL.MS 12:45 → UNDOADMOB 12:45 → DL.MS 13:46
PROVIDERS: ADMIT Student in an Organized Health Care Education/Training Program; ATTEND Student in an Organized Health Care Education/Training Program
DX: F10.120 Alcohol abuse with intoxication, uncomplicated (principal); J44.1 Chronic obstructive pulmonary disease with (acute) exacerbation; F12.10 Cannabis abuse, uncomplicated; J96.01 Acute respiratory failure with hypoxia; I12.9 Hypertensive chronic kidney disease with stage 1 through stage 4 chronic kidney disease, or unspecified chronic kidney disease; N18.9 Chronic kidney disease, unspecified; F17.210 Nicotine dependence, cigarettes, uncomplicated; E66.9 Obesity, unspecified; Z68.33 Body mass index [BMI] 33.0-33.9, adult; K21.9 Gastro-esophageal reflux disease without esophagitis; Z79.899 Other long term (current) drug therapy; Z88.6 Allergy status to analgesic agent; Z88.1 Allergy status to other antibiotic agents; Y90.8 Blood alcohol level of 240 mg/100 ml or more
CPT/HCPCS: 36415; 71045; 80048; 80053; 80305-QW; 81001; 82150; 83690; 83735; 84100; 84484; 85025; 93005; 94640; 96361; 96365; 96372; 96374; 96375; 99285; A9270-GY; G0378; G0480; J1644; J2405; J3411; J3490; J7030; J7120; J7620-GY

== ENCOUNTER 2019-11-15 07:18 | Day surgery (SDC) | payer MEDICARE, MEDICAID ==
[~2019-11-15 07:18] MED LIST: Dextrose 5%-0.45% NaCl 1,000 ML IV SCH; Midazolam 1 MG/ML 2 ML SDV ONE; Sodium Chloride 0.9% 10 ML Syringe FLUSH PRN; fentaNYL 100 MCG/2 ML SDV ONE
[2019-11-15] MEDS ORDERED: fentaNYL 100 MCG/2 ML SDV IV ONE ×3 (07:19→08:46)
[2019-11-15] MEDS ORDERED: Midazolam 1 MG/ML 2 ML SDV IV ONE ×3 (07:19→08:47)
--- NOTE | 2019-11-15 15:00 | OR ---
DATE: 11/15/2019 PROCEDURE PERFORMED: Esophagogastroduodenoscopy and multiple pinch biopsies. INSTRUMENT USED: [id number] Olympus video panendoscope. PREMEDICATIONS: No oral or topical anesthesia used. Fentanyl 100 mcg intravenous, Versed 2 mg intravenous. Nasal O2 cannula. The procedure was done under pulse oximetry, BP recording, and environmental monitoring technician. INDICATION: The patient with longstanding difficulties of heartburn, on PPI, recently found to have Hemoccult positive stools. Esophagogastroduodenoscopy is performed for detection of any active erosive lesions. Dejesus esophagus and/or malignancy also under consideration, H. pylori status to be determined, endoscopic hemostasis therapy if needed. The scope was passed with ease. Adequate visualization of the esophagus was made from proximal to distal areas. No upper esophageal lesions identified. No distal esophageal stricture. No uphill or downhill esophageal varices. No Joycelyn-Anders tear. No evidence of erosive esophagitis by [place] criteria. No esophageal polyp or tumor mass identified. Z-line was seen at around 40 cm distal to the oral verge, configuration consistent with grade 1 by ZAP classification. Some patchy erythema of the gastric fundus mucosa was noted, longitudinal in nature. No proximal gastric varices. Gastric fundus examination by retroflexion showed no polypoid lesions. No gastric ulcer, malignant mass, or vascular ectasia identified. Duodenal bulb showed no ulcer. Visualized second part of the duodenum is unremarkable. Numerous scattered erosions were noted in the gastric antrum without bleeding from them. Multiple pinch biopsies were taken from the gastric antrum and proximal body and sent for PyloriTek test for H. pylori, and if negative in an hour, the tissue is to be sent for histopathology. No bleeding was noted from any of the visualized areas at the completion of the examination. Photographs were taken of duodenal bulb, gastric antrum, fundus, and distal esophagus. IMPRESSION: Gastric antral erosions. The patient tolerated the procedure well. [facility] /[id number]
== END 2019-11-15 10:50 | disposition home or self-care (01) ==
LOC: DL.ENDO 07:18
PROVIDERS: ATTEND Internal Medicine Gastroenterology
DX: K25.9 Gastric ulcer, unspecified as acute or chronic, without hemorrhage or perforation (principal); R12 Heartburn; E78.5 Hyperlipidemia, unspecified; I12.9 Hypertensive chronic kidney disease with stage 1 through stage 4 chronic kidney disease, or unspecified chronic kidney disease; N18.9 Chronic kidney disease, unspecified; Z79.82 Long term (current) use of aspirin; Z88.0 Allergy status to penicillin; Z79.899 Other long term (current) drug therapy
CPT/HCPCS: 43239; 87077; J2250; J3010; J7042

== ENCOUNTER 2019-11-17 05:37 | Day surgery (SDC) | payer MEDICARE, MEDICAID ==
[2019-11-17] MEDS ORDERED: fentaNYL 100 MCG/2 ML SDV IV ONE ×3 (05:38→06:59)
[2019-11-17] MEDS ORDERED: Midazolam 1 MG/ML 2 ML SDV IV ONE ×5 (05:38→07:05)
[2019-11-17] MEDS ORDERED: Midazolam 1 MG/ML 2 ML SDV ONE (06:14)
[2019-11-17] MEDS ORDERED: fentaNYL 100 MCG/2 ML SDV ONE (06:14)
[2019-11-17] MEDS ORDERED: Dextrose 5%-0.45% NaCl 1,000 ML IV SCH (06:45)
--- NOTE | 2019-11-17 07:34 | OR ---
DATE: 11/17/2019 PROCEDURE: Total colonoscopy. INSTRUMENT USED: [id number] Olympus video colonoscope. PREMEDICATIONS: Fentanyl 100 mcg intravenous, Versed 3 mg intravenous. The procedure was done under pulse oximetry, BP recording, and potline monitor. INDICATIONS: The patient with positive SIT. Colonoscopic examination is done for detection of any polypoid lesions and removal, endoscopic hemostasis therapy if needed. DESCRIPTION OF PROCEDURE: Initial rectal exam was unremarkable. Rigid anoscopy was normal. The colonoscope was passed with ease. Few scattered diverticula were noted in the distal left colon along with deformity. The scope was passed with ease up to the ileocecal area. Photographs were taken of the normal- appearing cecum identified by landmarks of appendiceal orifice and double-bulged ileocecal folds. No bleeding was noted from any of the visualized areas at the commencement of the examination. No stricture. No vascular ectasia. No large isolated ulcerations seen. No evidence of diffuse inflammatory bowel disease in the form of friability, contact bleeding, or ulcerations. No polyp or tumor mass identified. Bowel preparation was found to be adequate, Malo scale 2 in the right and transverse colon, #3 left colon, total score 7. Probing the proximal sides of folds and flexures using adequate distention and clearing up the stool material, withdrawal of the scope was made. Cecum to rectum time over 6 minutes. No bleeding was noted from any of the visualized areas at the completion of the examination. IMPRESSION: Diverticulosis. The patient tolerated the procedure well. [facility] /[id number]
== END 2019-11-17 09:30 | disposition home or self-care (01) ==
LOC: DL.ENDO 05:37
PROVIDERS: ATTEND Internal Medicine Gastroenterology
DX: K57.30 Diverticulosis of large intestine without perforation or abscess without bleeding (principal); I12.9 Hypertensive chronic kidney disease with stage 1 through stage 4 chronic kidney disease, or unspecified chronic kidney disease; E78.5 Hyperlipidemia, unspecified; N18.9 Chronic kidney disease, unspecified; R80.9 Proteinuria, unspecified; E66.09 Other obesity due to excess calories; Z68.29 Body mass index [BMI] 29.0-29.9, adult; Z88.0 Allergy status to penicillin; Z98.890 Other specified postprocedural states
CPT/HCPCS: 45378; J2250; J3010; J7042; G0121

== ENCOUNTER 2020-12-18 15:36 | Emergency (ER) | payer MEDICAID, MEDICARE ==
--- NOTE | 2020-12-18 15:49 | EDM.PDOC ---
ED HPI GENERAL MEDICAL PROBLEM - General Chief Complaint: Trauma Stated Complaint: ABULANCE - TRAUMA Time Seen by Provider: 12/18/20 15:36 Source of Information: Reports: Patient History Limitations: Reports: No Limitations - History of Present Illness INITIAL COMMENTS - FREE TEXT/NARRATIVE: HPI: This 65 yo male patient was brought to the ED by [facility] due to a suicide attempt. The patient was found in the bathroom with a laceration to his left neck. The patient reports that he recently got a DUI and was supposed to go to court today. The patient reports the charges were dropped. The patient reports that he then got depressed and attempted to kill himself by cutting his neck with a razor blade. EMS called a trauma code due to a 6 inch laceration to his mid to left side of his neck. The patient denies any additional symptoms or concerns. The patient reports he cut himself at about noon today and has been lying on the bathroom floor since the time of injury. Primary Survey Airway: open and patient Breathing: regular without additional effort Circulation: no major bleeding noted from the large laceration to the neck (15 cm) Deformity: no deformity noted Expose: as appropriate GCS: 15 Secondary Survey HEENT Head: normocephalic, atraumatic Eyes: PERRLA Ears: no obvious trauma, canals open Nose: no deformity, no bleeding, mucosa moist Mouth: no noted trauma Throat: no abnormalities noted Neck: Laceration to the patient's anterior and left neck with no profuse bleeding. There is injury to the SCM Chest: lung sounds were clear and equal bilaterally, Heart was RRR, no murmurs, rubs or gallop Abdomen: normoactive bowel sounds, no organomegally, no tenderness on palpation Pelvis: stable Extremities: CMS intact Provider Trauma Notes Arrival Time: 1535 GCS on Arrival: 15 C-collar present on arrival: NA GCS at 1 hour: Off spine board: NA Time primary survey: 1536 Time secondary survey: 1540 Time C-collar cleared: NA By: Time removed: GCS on Transfer: 15 Onset: Today Duration: Constant Location: Reports: Neck Quality: Reports: Sharp Severity: Moderate Improves with: Reports: None Worsens with: Reports: None Context: Reports: Other Associated Symptoms: Reports: No Other Symptoms - Related Data Allergies Allergy/AdvReac Type Severity Reaction Status Date / Time ampicillin Allergy Itching Verified 11/17/19 06:05 ciprofloxacin Allergy Hives Verified 11/17/19 06:05 isosorbide [From Imdur] Allergy Other Verified 11/17/19 06:05 simvastatin Allergy Other Verified 11/17/19 06:05 Home Meds: Home Meds Aspirin [Dupage Aspirin] 81 mg PO DAILY 07/31/18 [History] Lisinopril/Hydrochlorothiazide [Lisinopril-Hctz 20-12.5 mg Tab] 1 tab PO DAILY 07/31/18 [History] Metoprolol Succinate 50 mg PO DAILY 07/31/18 [History] Omeprazole 20 mg PO DAILY 07/31/18 [History] atorvaSTATin Calcium [Atorvastatin Calcium] 40 mg PO DAILY 07/31/18 [History] Budesonide/Formoterol Fumarate [Symbicort 80-4.5 MCG] 2 puff INH BID 11/14/19 [History] Past Medical History HEENT History: Reports: Cataract Cardiovascular History: Reports: High Cholesterol, Hypertension Respiratory History: Reports: None Gastrointestinal History: Reports: GERD Genitourinary History: Reports: Chronic Renal Insuffiency Musculoskeletal History: Reports: None Neurological History: Reports: Brain Injury Psychiatric History: Reports: Addiction, PTSD Endocrine/Metabolic History: Reports: Obesity/BMI 30+ Hematologic History: Reports: None Immunologic History: Reports: None Oncologic (Cancer) History: Reports: None Dermatologic History: Reports: None - Infectious Disease History Infectious Disease History: Reports: None - Past Surgical History Head Surgeries/Procedures: Reports: Craniotomy HEENT Surgical History: Reports: Cataract Surgery, Other (See Below) Other HEENT Surgeries/Procedures: RIGHT EYE CATARACT SURGERY Cardiovascular Surgical History: Reports: None Respiratory Surgical History: Reports: None GI Surgical History: Reports: EGD Male Surgical History: Reports: None Endocrine Surgical History: Reports: None Neurological Surgical History: Reports: None Musculoskeletal Surgical History: Reports: ORIF, Other (See Below) Other Musculoskeletal Surgeries/Procedures:: LEFT HAND Oncologic Surgical History: Reports: None Dermatological Surgical History: Reports: None Social & Family History - Family History Family Medical History: No Pertinent Family History - Caffeine Use Caffeine Use: Reports: Coffee, Soda, Tea Other Caffeine Use: NO SODA. COFFEE AVERAGE OF 1 CUP DAILY - Living Situation & Occupation Living situation: Reports: Alone Occupation: Retired Review of Systems - Review of Systems Review Of Systems: Comprehensive ROS is negative, except as noted in HPI. ED EXAM, GENERAL - Physical Exam Exam: See Below Exam Limited By: No Limitations General Appearance: Alert, WD/WN, Moderate Distress Eye Exam: Bilateral Eye: EOMI, Normal Inspection, PERRL Ears: Normal External Exam, Normal Canal, Hearing Grossly Normal, Normal TMs Nose: Normal Inspection, Normal Mucosa, No Blood Throat/Mouth: Normal Inspection, Normal Lips, Normal Teeth, Normal Gums, Normal Oropharynx, Normal Voice, No Airway Compromise Head: Atraumatic, Normocephalic Neck: Other (15 cm laceration to the anterior left neck) Respiratory/Chest: No Respiratory Distress, Lungs Clear, Normal Breath Sounds, No Accessory Muscle Use, Chest Non-Tender Cardiovascular: Normal Peripheral Pulses, Regular Rate, Rhythm, No Edema, No Gallop, No JVD, No Murmur, No Rub GI/Abdominal: Normal Bowel Sounds, Soft, Non-Tender, No Organomegaly, No Distention, No Abnormal Bruit, No Mass (Male) Exam: Deferred Rectal (Males) Exam: Deferred Back Exam: Normal Inspection, Full Range of Motion, NT Extremities: Normal Inspection, Normal Range of Motion, Non-Tender, Normal Capillary Refill, No Pedal Edema Neurological: Alert, Oriented, CN II-XII Intact, Normal Cognition, Normal Gait, Normal Reflexes, No Motor/Sensory Deficits Psychiatric: Normal Affect, Normal Mood Skin Exam: Warm, Dry, Intact, Normal Color, No Rash Lymphatic: No Adenopathy Course - Orders/Labs/Meds Orders: Active Orders 24 hr Category Date Time Status ACETAMINOPHEN [CHEM] Stat Lab 12/18/20 15:40 Ordered COMPREHENSIVE METABOLIC PN,CMP [CHEM] Stat Lab 12/18/20 15:40 Ordered CORONAVIRUS COVID-19 BRITTANEY [MOLEC] Urgent Lab 12/18/20 15:40 Received DRUG SCREEN URINE BIORAD [URCHEM] Stat Lab 12/18/20 15:40 Ordered ETHANOL BLOOD MEDICAL [CHEM] Stat Lab 12/18/20 15:40 Ordered SALICYLATE [CHEM] Stat Lab 12/18/20 15:40 Ordered UA RFX BIANCA AND CULT IF INDIC [URIN] Urgent Lab 12/18/20 15:40 Ordered Labs: Laboratory Tests 12/18/20 Range/Units 15:37 WBC 8.0 (5.0-10.0) 10^3/uL RBC 5.34 (4.6-6.2) 10^6/uL Hgb 15.1 D (14.0-18.0) g/dL Hct 45.2 (40.0-54.0) % MCV 84.6 (80-100) fL MCH 28.3 (27.0-34.0) pg MCHC 33.4 (33.0-35.0) g/dL Plt Count 193 (150-450) 10^3/uL Neut % (Auto) 55.4 (42.2-75.2) % Lymph % (Auto) 30.3 (20.5-50.1) % [place] % (Auto) 12.1 H (2-8) % Eos % (Auto) 1.9 (1.0-3.0) % Baso % (Auto) 0.3 (0.0-1.0) % Departure - Departure Time of Disposition: 16:11 Disposition: DC/Tfer to Acute Hospital 02 Condition: Serious Clinical Impression: Suicide attempt, Laceration - Discharge Information *PRESCRIPTION DRUG MONITORING PROGRAM REVIEWED*: Not Applicable *COPY OF PRESCRIPTION DRUG MONITORING REPORT IN PATIENT YISSEL: Not Applicable Forms: Interfacility Transfer EMTALA Care Plan Goals: Discussed the patient's history, examination and lab results with Dr. Schulz. Dr. Schulz accepted the patient for continued evaluation and further treatment at [facility] in [place]. The patient will be transported by [facility]. - My Orders Last 24 Hours: My Active Orders 12/18/20 15:40 ACETAMINOPHEN [CHEM] Stat COMPREHENSIVE METABOLIC PN,CMP [CHEM] Stat CORONAVIRUS COVID-19 BRITTANEY [MOLEC] Urgent DRUG SCREEN URINE BIORAD [URCHEM] Stat ETHANOL BLOOD MEDICAL [CHEM] Stat SALICYLATE [CHEM] Stat UA RFX BIANCA AND CULT IF INDIC [URIN] Urgent - Assessment/Plan Last 24 Hours: My Active Orders 12/18/20 15:40 ACETAMINOPHEN [CHEM] Stat COMPREHENSIVE METABOLIC PN,CMP [CHEM] Stat CORONAVIRUS COVID-19 BRITTANEY [MOLEC] Urgent DRUG SCREEN URINE BIORAD [URCHEM] Stat ETHANOL BLOOD MEDICAL [CHEM] Stat SALICYLATE [CHEM] Stat UA RFX BIANCA AND CULT IF INDIC [URIN] Urgent
[2020-12-18 16:06] LABS: ANION GAP 15.2 mEq/L (7-13); CHLORIDE,CL 101 mmol/L (98-107); SODIUM,NA 140 mmol/L (136-145)
[2020-12-18 16:13] LABS: ACETAMINOPHEN 0 ug/mL (10-30 (Therapeutic))
[2020-12-18] MEDS ORDERED: Ondansetron 4 MG/2 ML SDV IVPUSH ONE (16:59)
[2020-12-18] MEDS ORDERED: HYDROmorphone 0.5 MG/0.5 ML Syringe IVPUSH ONE (16:59)
== END 2020-12-18 17:08 ==
LOC: DL.ED 15:36
DX: S11.91XA Laceration without foreign body of unspecified part of neck, initial encounter (principal); E78.00 Pure hypercholesterolemia, unspecified; I12.9 Hypertensive chronic kidney disease with stage 1 through stage 4 chronic kidney disease, or unspecified chronic kidney disease; N18.9 Chronic kidney disease, unspecified; K21.9 Gastro-esophageal reflux disease without esophagitis; E66.9 Obesity, unspecified; Z68.33 Body mass index [BMI] 33.0-33.9, adult; Z88.1 Allergy status to other antibiotic agents; Z88.8 Allergy status to other drugs, medicaments and biological substances; Z20.822 Contact with and (suspected) exposure to COVID-19; X78.8XXA Intentional self-harm by other sharp object, initial encounter
CPT/HCPCS: 36415; 80053; 80143; 80179; 80307; 85025; 96374; 96375; 99284; 99285; J1170; J2405; U0002

== ENCOUNTER 2022-05-22 22:09 | Emergency (ER) | payer MEDICARE, MEDICAID ==
[2022-05-22] MEDS ORDERED: MVI, Adult with Vitamin K 10 ML, Folic Acid 1 MG, Thiamine 100 MG in Lactated Ringers 1... IV ONE ×4 (22:18)
[2022-05-22 22:59] LABS: ANION GAP 18.2 mEq/L (7-13); CHLORIDE,CL 91 mmol/L (98-107); SODIUM,NA 126 mmol/L (136-145)
[2022-05-22 23:15] LABS: ESTIMATED GFR 39 mL/min (>=60)
[2022-05-22 23:16] LABS: ACETAMINOPHEN 0 ug/mL (10-30 (Therapeutic))
[2022-05-22 23:39] LABS: CORONAVIRUS COVID-19 NAA POSITIVE (NEGATIVE)
[2022-05-23] MEDS ORDERED: Aspirin 81 MG Tab.Chew PO ONE (00:06)
[2022-05-23 00:14] LABS: AMPHETAMINES,URINE NEGATIVE (NEGATIVE); BARBITURATES,URINE NEGATIVE (NEGATIVE); BENZODIAZEPINE,URINE NEGATIVE (NEGATIVE); MDMA (ECSTASY), URINE NEGATIVE (NEGATIVE); METHADONE,URINE NEGATIVE (NEGATIVE); METHAMPHETAMINES,URINE NEGATIVE (NEGATIVE); OPIATES,URINE NEGATIVE (NEGATIVE); OXYCODONE,URINE NEGATIVE (NEGATIVE); PHENCYCLIDINE,URINE NEGATIVE (NEGATIVE); TCA,URINE NEGATIVE (NEGATIVE)
[2022-05-23] MEDS ORDERED: Heparin Sodium 5,000 Units/ML Vial IVPUSH ONE (00:42)
[2022-05-23] MEDS ORDERED: Heparin Sodium/0.45% NaCl 25,000 UNITS/500 ML BAG IV SCH (00:45)
== END 2022-05-23 08:21 | disposition home or self-care (01) ==
LOC: DL.ED 22:09
DX: U07.1 COVID-19 (principal); F10.920 Alcohol use, unspecified with intoxication, uncomplicated; R77.8 Other specified abnormalities of plasma proteins; S80.212A Abrasion, left knee, initial encounter; S80.211A Abrasion, right knee, initial encounter; E78.00 Pure hypercholesterolemia, unspecified; I12.9 Hypertensive chronic kidney disease with stage 1 through stage 4 chronic kidney disease, or unspecified chronic kidney disease; N18.9 Chronic kidney disease, unspecified; E66.9 Obesity, unspecified; Z68.30 Body mass index [BMI] 30.0-30.9, adult; Z88.0 Allergy status to penicillin; Z88.1 Allergy status to other antibiotic agents; Z88.8 Allergy status to other drugs, medicaments and biological substances; Z79.82 Long term (current) use of aspirin; Z79.899 Other long term (current) drug therapy; Z20.822 Contact with and (suspected) exposure to COVID-19; Y90.8 Blood alcohol level of 240 mg/100 ml or more
CPT/HCPCS: 0240U; 36415; 70450; 71045; 80053; 80143; 80305; 80307; 81001; 83880; 84484; 85025; 85379; 85610; 85730; 93005; 93010; 96365; 96366; 96367; 96376; 99284; 99285; A9270; J1644; J3411; J7120; J3490